=== PATIENT | male | born 1955 | race Caucasian/White ===

== ENCOUNTER → 2018-10-28 | Outpatient (CLI) | payer BC, OTHER ==
--- NOTE | 2018-10-28 14:49 | Diagnostic Imaging Report ---
PROCEDURE: US DOPPLER ABD/COMPLETE TECHNIQUE: Multiple real-time grayscale images were obtained over the kidneys in various projections. Duplex evaluation of renal arteries was also attempted. INDICATION: Chronic kidney disease. FINDINGS: The right kidney measures 9.3 x 6.3 x 5.4 cm and the left kidney measures 10.2 x 5.1 x 4.3 cm. Cortical thickness and echogenicity appears normal. No calculi or hydronephrosis is seen. There is a cyst involving the mid left kidney measuring approximately 2.3 cm in diameter. Renal artery velocities appear to be normal bilaterally. No velocity elevation is seen. Renal artery to aorta ratios are unremarkable. The Doppler waveforms are unremarkable. The urinary bladder is unremarkable. Prevoid volume is 325 mL. Post void volume is 49 mL. IMPRESSION: 1. No definite evidence of renal artery stenosis. 2. Left renal cyst. Dictated by: Dictated on workstation # [id number]
== END ==
LOC: RAD 11:57
PROVIDERS: ATTEND Nurse Practitioner
DX: I12.0 Hypertensive chronic kidney disease with stage 5 chronic kidney disease or end stage renal disease (principal); E11.22 Type 2 diabetes mellitus with diabetic chronic kidney disease; D63.1 Anemia in chronic kidney disease; E78.5 Hyperlipidemia, unspecified; N18.5 Chronic kidney disease, stage 5
CPT/HCPCS: 93975

== ENCOUNTER → 2018-12-08 | Outpatient (CLI) | payer BC ==
[2018-12-08 09:00] LABS: MEAN PLATELET VOLUME 10.1 FL (7.4-10.4); RED CELL DISTRIBUTION WIDTH 13.2 % (10.0-14.5); WHITE BLOOD COUNT 5.8 10^3/uL (4.3-11.0)
[2018-12-08 09:04] LABS: BILIRUBIN,URINE NEGATIVE (NEGATIVE); CLARITY,URINE CLEAR; COLOR,URINE YELLOW; GLUCOSE, URINE (UA) 1+ (NEGATIVE); KETONES,URINE NEGATIVE (NEGATIVE); LEUKOCYTE ESTERASE ,URINE 1+ (NEGATIVE); NITRITE,URINE NEGATIVE (NEGATIVE); PH,URINE 6 (5-9); PROTEIN,URINE 4+ (NEGATIVE); UROBILINOGEN,URINE NORMAL (NORMAL)
[2018-12-08 09:24] LABS: RBC,URINE RARE /HPF
[2018-12-08 09:25] LABS: AMORPHOUS SEDIMENT,UR RARE AMOR URATES /LPF; BACTERIA,URINE TRACE /HPF; GRANULAR CASTS,URINE RARE /LPF; HYALINE CASTS, URINE RARE /LPF; SQUAMOUS EPITHELIAL CELL,UR RARE /HPF; WBC,URINE RARE /HPF
[2018-12-08 09:29] LABS: ALBUMIN 4.2 GM/DL (3.2-4.5); CALCIUM 9.6 MG/DL (8.5-10.1); CREATININE SERUM 3.95 MG/DL (0.60-1.30); PHOSPHORUS 4.1 MG/DL (2.3-4.7); POTASSIUM 5.3 MMOL/L (3.6-5.0); URIC ACID 7.5 MG/DL (2.6-7.2)
== END ==
LOC: LAB 08:26
PROVIDERS: ATTEND Nurse Practitioner
DX: I12.0 Hypertensive chronic kidney disease with stage 5 chronic kidney disease or end stage renal disease (principal); N18.5 Chronic kidney disease, stage 5; D63.1 Anemia in chronic kidney disease; E11.22 Type 2 diabetes mellitus with diabetic chronic kidney disease; E78.5 Hyperlipidemia, unspecified
CPT/HCPCS: 36415; 80061; 80069; 81000; 82306; 82570; 82728; 83036; 83540; 83883; 83970; 84155; 84156; 84165; 84166; 84550; 85027; 86334; 86335

== ENCOUNTER 2018-12-28 13:04 | Outpatient (RCR) | payer BC ==
[2018-12-21 15:24] VITALS: BP 184/98
[2018-12-21] MEDS: FERRIC CARBOXYMALTOSE INJ 750 MG in NS (IVPB) 250 ML IV SCH (15:52)
--- NOTE | 2018-12-21 16:41 | NUR ---
REMOVED IV, CATHETER TIP INTACT. MONITORED POST INFUSION DUE TO FIRST TIME RECEIVING MEDICATION. DISCHARGED AT THIS TIME, ACCOMPANIED BY FAMILY.
[~2018-12-28] VITALS: Ht 162.6 cm; Wt 80.3 kg
[~2018-12-28 13:04] MED LIST: ACETAMINOPHEN 500 MG TAB (TYLENOL) PO PRN; diphenhydrAMINE 50 MG/ML INJ (BENADRYL) IV PRN
[2018-12-28] MEDS: FERRIC CARBOXYMALTOSE INJ 750 MG in NS (IVPB) 250 ML IV SCH (13:49)
[2018-12-28 14:12] VITALS: BP 182/95
== END 2018-12-28 14:12 | disposition home or self-care (01) ==
LOC: SDC 13:04
PROVIDERS: ATTEND Nurse Practitioner
DX: D50.9 Iron deficiency anemia, unspecified (principal); D63.1 Anemia in chronic kidney disease; N18.5 Chronic kidney disease, stage 5
CPT/HCPCS: 96365

== ENCOUNTER → 2019-01-06 | Outpatient (CLI) | payer BC ==
[2019-01-06 13:03] LABS: CALCIUM 9.2 MG/DL (8.5-10.1); CREATININE SERUM 3.89 MG/DL (0.60-1.30); PHOSPHORUS 3.5 MG/DL (2.3-4.7); POTASSIUM 4.3 MMOL/L (3.6-5.0)
== END ==
LOC: LAB 12:32
PROVIDERS: ATTEND Nurse Practitioner
DX: I12.0 Hypertensive chronic kidney disease with stage 5 chronic kidney disease or end stage renal disease (principal); N18.5 Chronic kidney disease, stage 5; D63.1 Anemia in chronic kidney disease; E11.9 Type 2 diabetes mellitus without complications; E78.5 Hyperlipidemia, unspecified; R80.9 Proteinuria, unspecified; Z79.1 Long term (current) use of non-steroidal anti-inflammatories (NSAID)
CPT/HCPCS: 36415; 80069

== ENCOUNTER → 2019-02-20 | Outpatient (CLI) | payer BC ==
[2019-02-20 10:32] LABS: HEMOGLOBIN 12.5 G/DL (13.3-17.7); MEAN PLATELET VOLUME 10.3 FL (7.4-10.4); RED CELL DISTRIBUTION WIDTH 13.4 % (10.0-14.5); WHITE BLOOD COUNT 5.2 10^3/uL (4.3-11.0)
[2019-02-20 10:57] LABS: ALBUMIN 4.2 GM/DL (3.2-4.5); CALCIUM 10.1 MG/DL (8.5-10.1); CREATININE SERUM 3.73 MG/DL (0.60-1.30); MAGNESIUM 2.6 MG/DL (1.8-2.4); PHOSPHORUS 3.5 MG/DL (2.3-4.7); POTASSIUM 4.5 MMOL/L (3.6-5.0); URIC ACID 6.2 MG/DL (2.6-7.2)
== END ==
LOC: LAB 09:57
PROVIDERS: ATTEND Nurse Practitioner
DX: I12.0 Hypertensive chronic kidney disease with stage 5 chronic kidney disease or end stage renal disease (principal); E11.22 Type 2 diabetes mellitus with diabetic chronic kidney disease; D63.1 Anemia in chronic kidney disease; N18.5 Chronic kidney disease, stage 5; E78.5 Hyperlipidemia, unspecified; R80.9 Proteinuria, unspecified; Z79.1 Long term (current) use of non-steroidal anti-inflammatories (NSAID)
CPT/HCPCS: 36415; 80069; 82306; 82728; 83540; 83735; 83970; 84550; 85027

== ENCOUNTER → 2019-06-16 | Outpatient (CLI) | payer BC ==
[2019-06-16 08:42] LABS: BILIRUBIN,URINE NEGATIVE (NEGATIVE); CLARITY,URINE CLEAR; COLOR,URINE YELLOW; GLUCOSE, URINE (UA) 4+ (NEGATIVE); KETONES,URINE NEGATIVE (NEGATIVE); LEUKOCYTE ESTERASE ,URINE NEGATIVE (NEGATIVE); NITRITE,URINE NEGATIVE (NEGATIVE); PH,URINE 5 (5-9); PROTEIN,URINE 3+ (NEGATIVE); UROBILINOGEN,URINE NORMAL (NORMAL)
[2019-06-16 08:48] LABS: BASOPHILS # (AUTO) 0.1 10^3/uL (0.0-0.1); BASOPHILS % (AUTO) 1 % (0-10); EOSINOPHILS # (AUTO) 0.3 10^3/uL (0.0-0.3); EOSINOPHILS % (AUTO) 4 % (0-10); HEMATOCRIT 31 % (40-54); HEMOGLOBIN 10.7 G/DL (13.3-17.7); LYMPHOCYTES # (AUTO) 1.1 X 10^3 (1.0-4.0); LYMPHOCYTES % (AUTO) 17 % (12-44); MEAN CORPUSCULAR HEMOGLOBIN 31 PG (25-34); MEAN CORPUSCULAR HGB CONC 34 G/DL (32-36); MEAN CORPUSCULAR VOLUME 89 FL (80-99); MEAN PLATELET VOLUME 10.1 FL (7.4-10.4); MONOCYTES # (AUTO) 0.6 X 10^3 (0.0-1.0); MONOCYTES % (AUTO) 9 % (0-12); NEUTROPHILS # (AUTO) 4.7 X 10^3 (1.8-7.8); NEUTROPHILS % (AUTO) 70 % (42-75); PLATELET COUNT 180 10^3/uL (130-400); RED CELL DISTRIBUTION WIDTH 12.9 % (10.0-14.5); WHITE BLOOD COUNT 6.7 10^3/uL (4.3-11.0)
[2019-06-16 08:52] LABS: BACTERIA,URINE NEGATIVE /HPF; SQUAMOUS EPITHELIAL CELL,UR RARE /HPF
[2019-06-16 08:53] LABS: AMORPHOUS SEDIMENT,UR RARE AMOR URATES /LPF
[2019-06-16 09:12] LABS: ALBUMIN 4.1 GM/DL (3.2-4.5); CALCIUM 9.2 MG/DL (8.5-10.1); CREATININE SERUM 5.47 MG/DL (0.60-1.30); PHOSPHORUS 4.8 MG/DL (2.3-4.7); POTASSIUM 4.3 MMOL/L (3.6-5.0)
== END ==
LOC: LAB 08:23
PROVIDERS: ATTEND Nurse Practitioner
DX: I12.0 Hypertensive chronic kidney disease with stage 5 chronic kidney disease or end stage renal disease (principal); N18.5 Chronic kidney disease, stage 5; E11.22 Type 2 diabetes mellitus with diabetic chronic kidney disease; D63.1 Anemia in chronic kidney disease; E78.5 Hyperlipidemia, unspecified; N25.89 Other disorders resulting from impaired renal tubular function; N25.81 Secondary hyperparathyroidism of renal origin; Z79.1 Long term (current) use of non-steroidal anti-inflammatories (NSAID)
CPT/HCPCS: 36415; 80069; 81000; 82306; 82570; 83970; 84156; 84550; 85025

== ENCOUNTER → 2019-07-10 | Outpatient (CLI) | payer BC ==
[2019-07-10 09:03] LABS: ALBUMIN 4.1 GM/DL (3.2-4.5); CALCIUM 9.7 MG/DL (8.5-10.1); CREATININE SERUM 4.27 MG/DL (0.60-1.30); PHOSPHORUS 4.2 MG/DL (2.3-4.7); POTASSIUM 3.3 MMOL/L (3.6-5.0)
== END ==
LOC: LAB 08:17
PROVIDERS: ATTEND Nurse Practitioner
DX: E11.22 Type 2 diabetes mellitus with diabetic chronic kidney disease (principal); D63.1 Anemia in chronic kidney disease; I12.0 Hypertensive chronic kidney disease with stage 5 chronic kidney disease or end stage renal disease; N18.5 Chronic kidney disease, stage 5; E78.5 Hyperlipidemia, unspecified; N25.81 Secondary hyperparathyroidism of renal origin; N25.89 Other disorders resulting from impaired renal tubular function; Z79.1 Long term (current) use of non-steroidal anti-inflammatories (NSAID)
CPT/HCPCS: 36415; 80069

== ENCOUNTER → 2019-07-25 | Outpatient (CLI) | payer BC ==
[2019-07-25 08:38] LABS: HEMOGLOBIN 10.9 G/DL (13.3-17.7); MEAN PLATELET VOLUME 9.4 FL (7.4-10.4); RED CELL DISTRIBUTION WIDTH 12.5 % (10.0-14.5); WHITE BLOOD COUNT 6.1 10^3/uL (4.3-11.0)
[2019-07-25 08:41] LABS: BILIRUBIN,URINE NEGATIVE (NEGATIVE); CLARITY,URINE CLEAR; COLOR,URINE YELLOW; GLUCOSE, URINE (UA) 2+ (NEGATIVE); KETONES,URINE NEGATIVE (NEGATIVE); LEUKOCYTE ESTERASE ,URINE NEGATIVE (NEGATIVE); NITRITE,URINE NEGATIVE (NEGATIVE); PH,URINE 7 (5-9); PROTEIN,URINE 3+ (NEGATIVE)
[2019-07-25 08:59] LABS: ALBUMIN 3.8 GM/DL (3.2-4.5); CALCIUM 9.5 MG/DL (8.5-10.1); CREATININE SERUM 4.08 MG/DL (0.60-1.30); PHOSPHORUS 4.6 MG/DL (2.3-4.7); POTASSIUM 4.3 MMOL/L (3.6-5.0); URIC ACID 7.1 MG/DL (2.6-7.2)
[2019-07-25 09:10] LABS: BACTERIA,URINE NEGATIVE /HPF; SQUAMOUS EPITHELIAL CELL,UR RARE /HPF; WBC,URINE 0-2 /HPF
== END ==
LOC: LAB 08:21
PROVIDERS: ATTEND Nurse Practitioner
DX: E11.22 Type 2 diabetes mellitus with diabetic chronic kidney disease (principal); D63.1 Anemia in chronic kidney disease; I12.0 Hypertensive chronic kidney disease with stage 5 chronic kidney disease or end stage renal disease; N18.5 Chronic kidney disease, stage 5; E78.49 Other hyperlipidemia; N25.89 Other disorders resulting from impaired renal tubular function; N25.81 Secondary hyperparathyroidism of renal origin; Z79.1 Long term (current) use of non-steroidal anti-inflammatories (NSAID)
CPT/HCPCS: 36415; 80069; 81000; 82306; 82570; 83970; 84156; 84550; 85027

== ENCOUNTER → 2020-01-05 | Outpatient (CLI) | payer BC ==
[2020-01-05 11:45] LABS: BASOPHILS # (AUTO) 0.1 10^3/uL (0.0-0.1); BASOPHILS % (AUTO) 1 % (0-10); EOSINOPHILS % (AUTO) 16 % (0-10); HEMATOCRIT 35 % (40-54); HEMOGLOBIN 11.7 G/DL (13.3-17.7); LYMPHOCYTES # (AUTO) 1.2 X 10^3 (1.0-4.0); LYMPHOCYTES % (AUTO) 19 % (12-44); MEAN CORPUSCULAR HEMOGLOBIN 30 PG (25-34); MEAN CORPUSCULAR HGB CONC 33 G/DL (32-36); MEAN CORPUSCULAR VOLUME 91 FL (80-99); MEAN PLATELET VOLUME 10.3 FL (7.4-10.4); MONOCYTES # (AUTO) 0.5 X 10^3 (0.0-1.0); MONOCYTES % (AUTO) 8 % (0-12); NEUTROPHILS # (AUTO) 3.4 X 10^3 (1.8-7.8); NEUTROPHILS % (AUTO) 56 % (42-75); PLATELET COUNT 168 10^3/uL (130-400); RED CELL DISTRIBUTION WIDTH 12.9 % (10.0-14.5)
[2020-01-05 11:52] LABS: BILIRUBIN,URINE NEGATIVE (NEGATIVE); CLARITY,URINE CLEAR; COLOR,URINE YELLOW; GLUCOSE, URINE (UA) NEGATIVE (NEGATIVE); KETONES,URINE NEGATIVE (NEGATIVE); LEUKOCYTE ESTERASE ,URINE NEGATIVE (NEGATIVE); NITRITE,URINE NEGATIVE (NEGATIVE); PH,URINE 6.5 (5-9); PROTEIN,URINE 2+ (NEGATIVE)
[2020-01-05 11:57] LABS: BAND NEUTROPHILS 1 %; BASOPHILS % (MANUAL) 1 %; EOSINOPHILS % (MANUAL) 15 %; LYMPHOCYTES % (MANUAL) 22 %; MONOCYTES % (MANUAL) 4 %; NEUTROPHILS % (MANUAL) 57 %; RBC MORPH NORMAL
[2020-01-05 12:00] LABS: BACTERIA,URINE NEGATIVE /HPF; WBC,URINE RARE /HPF
[2020-01-05 12:03] LABS: CREATININE SERUM 3.49 MG/DL (0.60-1.30); PHOSPHORUS 3.9 MG/DL (2.3-4.7); POTASSIUM 4.3 MMOL/L (3.6-5.0); URIC ACID 7.2 MG/DL (2.6-7.2)
== END ==
LOC: LAB 11:25
PROVIDERS: ATTEND Nurse Practitioner
DX: E11.22 Type 2 diabetes mellitus with diabetic chronic kidney disease (principal); D63.1 Anemia in chronic kidney disease; I12.0 Hypertensive chronic kidney disease with stage 5 chronic kidney disease or end stage renal disease; N18.5 Chronic kidney disease, stage 5; E78.5 Hyperlipidemia, unspecified; R80.9 Proteinuria, unspecified; N25.81 Secondary hyperparathyroidism of renal origin; Z79.1 Long term (current) use of non-steroidal anti-inflammatories (NSAID)
CPT/HCPCS: 36415; 80069; 81000; 82306; 82570; 83970; 84156; 84550; 85007; 85027

== ENCOUNTER → 2020-02-06 | Outpatient (CLI) | payer BC ==
[~2020-02-06] VITALS: Ht 167 cm
[~2020-02-06] MED LIST changes: -ACETAMINOPHEN 500 MG TAB (TYLENOL) PO PRN; +AMLO5TAB9 PO; +HYDR-3923 PO; +INSU100V6 SQ; +METO50TA7 PO; -diphenhydrAMINE 50 MG/ML INJ (BENADRYL) IV PRN
== END | disposition home or self-care (01) ==
LOC: PREOP 05:48
PROVIDERS: ATTEND Surgery
DX: Z01.818 Encounter for other preprocedural examination (principal)

== ENCOUNTER → 2020-04-04 | Outpatient (CLI) | payer BC ==
[2020-04-04 09:37] LABS: BILIRUBIN,URINE NEGATIVE (NEGATIVE); CLARITY,URINE CLEAR; COLOR,URINE YELLOW; GLUCOSE, URINE (UA) NEGATIVE (NEGATIVE); KETONES,URINE NEGATIVE (NEGATIVE); LEUKOCYTE ESTERASE ,URINE NEGATIVE (NEGATIVE); NITRITE,URINE NEGATIVE (NEGATIVE); PROTEIN,URINE 3+ (NEGATIVE)
[2020-04-04 09:45] LABS: BACTERIA,URINE NEGATIVE /HPF; WBC,URINE RARE /HPF
[2020-04-04 09:46] LABS: AMORPHOUS SEDIMENT,UR RARE AMOR URATES /LPF; RBC,URINE RARE /HPF; SQUAMOUS EPITHELIAL CELL,UR RARE /HPF
[2020-04-04 09:46] LABS: HEMOGLOBIN 11.9 G/DL (13.3-17.7); MEAN PLATELET VOLUME 10.8 FL (7.4-10.4); WHITE BLOOD COUNT 4.5 10^3/uL (4.3-11.0)
[2020-04-04 09:57] LABS: POTASSIUM 3.6 MMOL/L (3.6-5.0)
[2020-04-04 10:03] LABS: CREATININE SERUM 5.18 MG/DL (0.60-1.30)
[2020-04-04 10:06] LABS: URIC ACID 8.2 MG/DL (2.6-7.2)
== END ==
LOC: LAB 09:18
PROVIDERS: ATTEND Nurse Practitioner
DX: E11.22 Type 2 diabetes mellitus with diabetic chronic kidney disease (principal); D63.1 Anemia in chronic kidney disease; I12.0 Hypertensive chronic kidney disease with stage 5 chronic kidney disease or end stage renal disease; N18.5 Chronic kidney disease, stage 5; E78.49 Other hyperlipidemia; N25.81 Secondary hyperparathyroidism of renal origin; N25.89 Other disorders resulting from impaired renal tubular function; Z79.1 Long term (current) use of non-steroidal anti-inflammatories (NSAID)
CPT/HCPCS: 36415; 80069; 81000; 82306; 82570; 83970; 84156; 84550; 85027

== ENCOUNTER 2023-04-30 11:24 | Day surgery (SDC) | payer MEDICARE, BC ==
[2023-04-30] VITALS (8 sets, daily range): BP systolic 158–187; BP diastolic 78–97
[~2023-04-30] VITALS: Ht 162.6 cm; Wt 78.2 kg
[~2023-04-30 11:24] MED LIST changes: +ALLO100T PO; +AMLO-250 PO; -AMLO5TAB9 PO; +ASCO500T16 PO; +ATOR20TA66 PO; +CALC0.253 PO; +FERR-84 PO; +FURO40TA4 PO; +INSU100I14 SQ; +NF-SODBICA PO; +OMEP20CA18 PO
[2023-04-30] MEDS ORDERED: NS (IVPB) 50 ML 50 ML ONE (11:51)
[2023-04-30] MEDS ORDERED: ceFAZolin INJECTION 1,000 MG ONE (11:51)
[2023-04-30] MEDS ORDERED: LIDOCAINE 1% INJ 20 ML VIAL ONE (11:58)
[2023-04-30] MEDS ORDERED: PROPOFOL INJECTION 50 ML IV ONE ×2 (11:59→12:47)
--- NOTE | 2023-04-30 12:07 | Progress Note-Pre Operative ---
Pre-Operative Progress Note Date of Available H&P: Apr 30, 2023 Date H&P Reviewed: Apr 30, 2023 Time H&P Reviewed: 12:06 Pre-Operative Diagnosis: soft tissue lesion right foot SHENA SCHWARTZ DPM Apr 30, 2023 12:07
[2023-04-30] MEDS ORDERED: ceFAZolin INJECTION 1,000 MG in NS (IVPB) 50 ML 50 ML IV ONE (12:30)
[2023-04-30] MEDS ORDERED: LACTATED RINGERS 1,000 ML IV PRN (12:30)
[2023-04-30] MEDS ORDERED: fentaNYL INJ 100 MCG/2 ML AMP ONE (12:35)
[2023-04-30] MEDS ORDERED: NS IV 500 ML 500 ML IV ONE (12:45)
[2023-04-30] MEDS ORDERED: LIDOCAINE 1% INJ 20 ML VIAL INJ ONE (12:59)
[2023-04-30] MEDS ORDERED: SEVOFLURANE (ULTANE) 15 ML INHAL SOLN ONE (13:18)
--- NOTE | 2023-04-30 13:42 | Progress Note-Post Operative ---
Post-Operative Progess Note Surgeon (s)/History Card Clerk (s) Surgeon SHENA SCHWARTZ DPM History Card Clerk: none Pre-Operative Diagnosis soft tissue lesion right foot Post-Operative Diagnosis same Procedure & Operative Findings Date of Procedure 04/30/23 Procedure Performed/Findings Excision of right foot soft tissue lesion and skin Anesthesia Type General Estimated Blood Loss Estimated blood loss (mL): Minimal Specimens/Packing Specimens Removed Soft tissue lesion right foot SHENA SCHWARTZ DPM Apr 30, 2023 13:42
[2023-04-30] MEDS ORDERED: CEPH500C PO (13:48)
[2023-04-30] MEDS ORDERED: ACHD5005 PO (13:48)
--- NOTE | 2023-04-30 14:05 | Anesthesia-General Post-Op ---
General Patient Condition Mental Status/LOC: Same as Preop Cardiovascular: Satisfactory Nausea/Vomiting: Absent Respiratory: Satisfactory Pain: Controlled Complications: Absent Post Op Complications Complications None Follow Up Care/Instructions Patient Instructions None needed. Anesthesia/Patient Condition Patient Condition Patient is awake in PACU and doing well, no complaints, stable vital signs, no apparent adverse anesthesia problems. No complications reported per nursing. LILO CHUN DO Apr 30, 2023 14:05
[2023-04-30] MEDS ORDERED: fentaNYL INJ 100 MCG/2 ML AMP IVP ONE (14:15)
[2023-04-30] MEDS ORDERED: ONDANSETRON 4 MG/2 ML (SDV) Z0FRAN IVP PRN (14:15)
--- NOTE | 2023-04-30 18:37 | OPERATIVE REPORT ---
DATE OF SERVICE: 04/30/2023 SURGEON: Krystal Hernández DPM PREOPERATIVE DIAGNOSIS: Soft tissue lesion, right foot. POSTOPERATIVE DIAGNOSIS: Soft tissue lesion, right foot. PROCEDURE PERFORMED: Excision of soft tissue lesion, right foot. WOUND CLASS: Clean. ANESTHESIA: General. HEMOSTASIS: Pneumatic ankle tourniquet at 250 mmHg. INDICATIONS: This 68-year-old male presents complaining of a lesion to the right foot, slowly grown over many years. The lesion needs to be excised in hopes of a potential renal transplant. The patient was insistent that the lesion be removed entirely in order to identify the lesion and reduce risk of any other complication with his upcoming procedures. This lesion has become uncomfortable for the patient and he is willing to proceed after risks and complications were discussed at length. He understands there is a chance of scarring, open wound or loss of sensation in the area and he is willing to proceed. DESCRIPTION OF PROCEDURE: The patient was brought back to the operating table and placed in secure supine position. A local infusion of 18 mL of 1% Xylocaine was injected in a local infusion to the medial aspect of the right rearfoot, also approximately 3 mL were injected into the tarsal tunnel of the right foot with great care not to infiltrate any vascular structures. The right foot was then prepped and draped in normal sterile manner. The right foot was then elevated and allowed to exsanguinate after which the tourniquet was inflated to 250 mmHg. Attention was then directed to the right heel where approximately 2.5 cm diameter lesion was identified. There was an incision made on the medial aspect from anterior to posterior. It was then identified that the soft tissue lesion was fairly well adhered to the overlying dermis and epidermis. It was then decided that a full excision should be attempted at this time. During this process, the patient continued to move. Due to the delicate nature of the excision, it was then decided that a general anesthetic be induced. The lesion was excised complete with overlying dermis and epidermis. The incision was deepened into the subcutaneous tissue down to fascia. The majority of the lesion was well circumscribed. However, some irregularities were noted to the deeper layers. This specimen was sent for gross and microscopic evaluation generally intact. Bleeders were identified and cauterized. It was then decided that flap closure would be the most appropriate for this patient. Two rotational flaps were performed, one to the anterior and the other on the posterior aspect of the deficit. The anterior flap semi apache in incision from the superior aspect of the circular deficit extending anteriorly and inferiorly. The second began at the inferior aspect of the deficit and extending posteriorly and superiorly. Next, the flaps were mobilized utilizing blunt and sharp dissection in the subcutaneous tissue. The anterior flap was rotated posteriorly over the deficit after wound wash was performed. The posterior flap was extended anteriorly and superiorly meeting up with the anterior flap and temporarily sutured in place utilizing 4-0 Vicryl at the tip of the rotational flaps. Next, utilizing Prolene 4-0 in a simple interrupted type stitch, the 2 flaps were sutured together. This created a closure that resembled Z. The skin tension was minimized as much as possible with undermining of the surrounding soft tissue; however, there was some tension noted to the skin edges. Good closure was appreciated with complete closure of the deficits. Postoperative dressing consisted of Betadine-soaked Adaptic, sterile 4 x 4's, sterile Kerlix, all secured with a Coban wrap. The patient tolerated the anesthesia and procedure well and was transported from the operating room to the recovery area with vital signs stable and vascular status intact to all digits of the right foot. He is to follow up in my office in 10 days period of time. He is to be absolutely nonweightbearing on the right lower extremity. Prescription for Vicodin and Keflex were given to the patient. We will see him back in 10 days period of time or sooner if necessary. Job ID: [id number] DocumentID: [id number] Dictated Date: 04/30/2023 13:59:47 Quantity Surveyor Date: 04/30/2023 18:35:00 Dictated By: TALON ROGERS
== END 2023-04-30 15:15 ==
LOC: SDC 11:24
PROVIDERS: ATTEND Podiatrist Foot & Ankle Surgery
DX: D17.79 Benign lipomatous neoplasm of other sites (principal); I12.0 Hypertensive chronic kidney disease with stage 5 chronic kidney disease or end stage renal disease; N18.6 End stage renal disease; E11.22 Type 2 diabetes mellitus with diabetic chronic kidney disease; Z87.891 Personal history of nicotine dependence; Z99.2 Dependence on renal dialysis; Z79.4 Long term (current) use of insulin
CPT/HCPCS: 82947; 87081; 88304